=== PATIENT | female | born 1955 | race Caucasian/White ===

== ENCOUNTER 2019-06-05 21:16 | Inpatient (IN) | payer SELFPAY ==
[2019-06-05 22:18] LABS: Bilirubin Negative (Negative); Blood, Urine Negative (Negative); Clarity Turbid (Clear); Glucose, Urine (Dipstick) Normal (Negative); Leukocyte Negative Leu/uL (Negative); Nitrite Negative (Negative); Protein, Urine (Dipstick) 20 mg/dL (Neg-Trace)
--- NOTE | 2019-06-05 22:41 | RAD ---
Exam: Chest one view HISTORY:Lethargy. Agitation. Comparison: None FINDINGS: Cardiac silhouette:Normal cardiac silhouette. Left-sided Mediport catheter with the distal tip in the expected region of the superior vena cava. Pulmonary vessels: Pulmonary vessels are normal. There appears to be postsurgical change in the right infrahilar region. Costophrenic angles: Clear LUNGS: Increased opacity in the right infrahilar region which may represent post surgical change. Ate lectasis, pneumonia or aspiration are not be excluded. Pneumothorax: None Osseous abnormalities: None IMPRESSION: 1. Postoperative changes in the right infrahilar region with increased density as described above. Co rrelate clinically. Continued surveillance is recommended.
[2019-06-05 22:46] LABS: Actual Bicarbonate (HCO3a) 21.7 mEq/L (22-28); CO2 Tension 27.1 mmHg (35.0-45.0); Carboxyhemoglobin (COHb) 1.2 gm% (0.0-3.0); Hemoglobin (Hb) 11.9 g/dL (12.0-16.0); O2 Tension (PaO2) 131.5 mmHg (> 80.0); pH, Arterial 7.52 (7.35-7.45)
[2019-06-05 22:47] LABS: Analyzer IN Cardio ER; Calcium, Ionized 1.17 mmol/L (1.12-1.30); Potassium - ABG Lab 3.92 mmol/L (3.70-5.30); Puncture Site RBA
[2019-06-05 22:48] LABS: ALV-art Gradient 34.265 (0-20)
--- NOTE | 2019-06-05 23:01 | CT ---
Exam: Head CT without contrast HISTORY: Agitation. Metastatic breast cancer. Lethargy. COMPARISON: none FINDINGS: Limited evaluation due to motion degradation. There is vasogenic edema involving the left and right o ccipital-parietal lobes. Additional metastatic focus is suspected in the right temporal lobe. No obvious parenchymal hemorrhage or extra-axial hematoma. No obvious midline shift. Basilar cisterns ap pear to be grossly patent. No evidence of hydrocephalus. There is a lytic lesion due to metastases involving the left calvarium with overlying soft tissue as well as underlying extra-axial enhancement . Additional osseous metastases is not appreciated Asymmetric opacification of the right mastoid air cells. IMPRESSION: 1. Multifocal intracranial metastases suspected. 2. Metastatic focus in the left calvarium. 3. Further evaluation with brain MRI is recommended
[2019-06-05 23:21] LABS: #Lymphocytes 1.9 thou/uL (1.20-3.40); #Monocytes 1.1 thou/uL (0.11-0.59); #Neutrophils 9.3 thou/uL (1.40-6.50); %Basophils 0.2 % (0.0-1.0); %Eosinophils 0.1 % (0.0-10.0); %Lymphocytes 15.3 % (21.0-51.0); %Monocytes 8.8 % (0.0-10.0); %Neutrophils 75.5 % (42.0-75.0); Hemoglobin 11.1 g/dL (12.0-16.0); Mean Corpuscular HGB CONC 32.2 g/dL (32.0-36.0); Mean Corpuscular Hemoglobin 29.6 pg (27.0-31.0); Mean Corpuscular Volume 91.8 fL (78.0-98.0); Mean Platelet Volume 6.4 fL (7.4-10.4); Platelet Count 579 thou/uL (130-400); RBC Distribution Width 15.9 % (11.5-14.5); Red Blood Cell (RBC) Count 3.73 mill/uL (4.20-5.40); White Blood Cell (WBC) Count 12.3 thou/uL (4.8-10.8)
[2019-06-05 23:36] LABS: Amphetamine Not Detected (NotDetected); Barbiturates Screen Not Detected (NotDetected); Benzodiazepine Screen Detected (NotDetected); Cocaine Metabolite Screen Not Detected (NotDetected); Medtox Control Line Valid? VALID (VALID); Medtox Reader # READER 4; Methadone Not Detected (NotDetected); Methamphetamine Not Detected (NotDetected); Opiate Screen Detected (NotDetected); Oxycodone Screen Not Detected (NotDetected); Phencyclidine (PCP) Not Detected (NotDetected); THC/Cannabinoid Screen Not Detected (NotDetected); Tricyclic Screen Not Detected (NotDetected)
[2019-06-05 23:42] LABS: ALT (SGPT) 32 U/L (8-55); AST (SGOT) 68 U/L (5-34); Albumin 2.9 g/dL (3.4-4.8); Alkaline Phosphatase 455 U/L (40-150); Anion Gap 18 mmol/L (10-20); BUN (Urea Nitrogen) 11 mg/dL (9.8-20.1); Bilirubin, Total 0.5 mg/dL (0.2-1.2); CK (CPK) 98 U/L (29-168); Calc. Creatinine Clearance 0 mL/min (70-130); Calcium 9.4 mg/dL (7.8-10.44); Carbon Dioxide 23 mmol/L (23-31); Chloride 96 mmol/L (98-107); Estimated GFR-MDRD 82; Globulin 4.1 g/dL (2.4-3.5); Glucose 137 mg/dL (80-115); Potassium 4.5 mmol/L (3.5-5.1); Sodium 132 mmol/L (136-145)
[2019-06-05] MEDS ORDERED: Cefepime 2 GM VIAL ONE (23:52)
[2019-06-05] MEDS ORDERED: Acetaminophen 650 MG Suppository ONE (23:53)
[2019-06-06] MEDS ORDERED: Vancomycin HCl 1.5 GM in Sodium Chloride 0.9% 250 ML 300 ML IVPB SCH (00:15)
[2019-06-06] MEDS ORDERED: Lorazepam 2 MG/ML VIAL ONE (00:25)
[2019-06-06] MEDS ORDERED: Dexamethasone 10 MG/ML VIAL ONE (00:25)
[2019-06-06] MEDS ORDERED: Morphine 4 MG/ML VIAL ONE (01:04)
[2019-06-06] MEDS ORDERED: Acetaminophen 650 MG Suppository PR PRN (02:20)
[2019-06-06 06:18] LABS: Lactic Acid 3.1 mmol/L (0.5-2.2)
[2019-06-06] MEDS ORDERED: Prevnar 13-Val Conj/PF 0.5 ML SYRINGE IM ONE (07:15)
[2019-06-06] MEDS ORDERED: Cefepime 2 GM in Sodium Chloride 0.9% 100 ML IVPB SCH (08:00)
[2019-06-06] MEDS: Famotidine/PF 20 mg/2ml Vial SLOW IVP SCH ×2 (09:12→09:59)
[2019-06-06] MEDS: Dexamethasone 4 MG in Sodium Chloride 0.9% 50 ML IVPB SCH ×5 (09:12→20:49)
[2019-06-06] MEDS ORDERED: hydrALAZINE 20 MG/ML VIAL SLOW IVP PRN (09:27)
--- NOTE | 2019-06-06 10:38 | HP ---
PRIMARY CARE PHYSICIAN: The patient's primary care is through the [facility] in [place], and she sees a fellow there by the name of Dr. Kacey Webb, and that phone number is [phone]. CHIEF COMPLAINT: Altered mental status. HISTORY OF PRESENT ILLNESS: The history of present illness is taken from the patient's sister, who is at bedside, and she is also the medical power of printing agent, and her name is Jennie. The patient herself is unable to give a history due to lethargy and inability to talk. She says that the patient, Ms. Valenzuela has a history of metastatic breast cancer. It was originally diagnosed in 2012. She says that she is "triple negative". Currently, she is getting her treatment at [facility]. She says that in the course of her treatment she was recently diagnosed about 3 weeks ago with a peptic ulcer and had severe bleeding, and she says that she was very weak and bedridden after that, and basically, she took her sister home with her after she had gotten severely weak. She says she was able to get her up for different at least 2 or 3 times a day. She also had been giving her medications for pain as she has bone metastases, which have been very painful, and she normally gets extended-release morphine 15 mg in the morning and 30 in the evening. She said she briefly increased it up to 30 mg twice a day, but then was concerned that she got a little bit more lethargic. She also notes that she has lost about 30 pounds in the last few months, and during this time, she was also giving her immediate-release morphine as well as lorazepam and cyclobenzaprine. She says that she decreased it back to 15 mg in the morning and 30 in the evening, but she still seemed lethargic, and this got her scared, and she was afraid that she may have accidentally overdosed her sister, and she called the patient's primary care doctor in [place], who did not feel that the medication dosage was too much, and the following day, she still had not woken up, and for this reason, she brought her to the emergency room. In the ER, they did a CT scan of the brain, which showed some findings suspicious for metastatic disease, and also, her lab work was suspicious for possible sepsis with an elevated lactic acid, and white blood cell count was elevated as well. She also has a low-grade fever, and she is being admitted for further treatment. REVIEW OF SYSTEMS: Unobtainable as the patient is unable to talk. She is basically lying in the bed. She appears comfortable. PAST MEDICAL HISTORY: Significant for triple-negative breast cancer, which is metastatic to the lungs as well as the bones. The patient's sister also said she had a malignant pericardial effusion recently as well; however, she is still undergoing treatment. The plan was to go Friday for radiation treatment, this coming Friday. Peptic ulcer disease is also a past medical history. PAST SURGICAL HISTORY: She has had a double mastectomy and ankle surgery. ALLERGIES: PENICILLIN. SOCIAL HISTORY: She is . She has 4 living children. One of her daughters due to breast cancer. She is a former smoker and denies any alcohol use. FAMILY HISTORY: Daughter of breast cancer. CURRENT MEDICATIONS: Include: 1. Tylenol 500 mg p.r.n. 2. Flexeril 10 mg 3 times a day. 3. Lorazepam 0.5 mg q.6. 4. Extended-release morphine 15 mg q.6. 5. MS Contin 30 mg daily. 6. Omeprazole 20 mg twice a day. 7. Zofran 4 mg q.8. 8. Senna 8.6 mg p.r.n. daily. 9. Turmeric 500 mg daily. PHYSICAL EXAMINATION: GENERAL: She is well developed and well nourished. I am unable to assess orientation as she is basically sleeping. VITAL SIGNS: Blood pressure was 127/67, heart rate 104, respiratory rate of 18, temperature was 98.1, O2 saturation is 98% on 2 L. HEENT: Her pupils are equal, round, and reactive. Extraocular muscles are intact. Her sclerae are anicteric. Throat; no erythema, no exudates. NECK: No adenopathy. No bruits. LUNGS: Clear. No wheezing. No rales. CARDIOVASCULAR: She has normal S1 and S2. I did not appreciate an S3 or S4. No murmurs, clicks, or rubs. ABDOMEN: Soft, nontender, and nondistended. Positive for bowel sounds. No rebound or guarding. EXTREMITIES: She does have some mild edema. No calf tenderness. NEUROLOGIC: She is lethargic, very difficult to assess, but she appears to move all extremities, and it is grossly nonfocal. SKIN AND INTEGUMENT: She does have some bruising on the upper extremities, primarily on the left upper arm. LABORATORY RESULTS: White blood cell count is 12.3, hemoglobin 11.1, hematocrit is 34.3, platelet count is 579. Sodium 132, potassium 4.5, chloride is 96, CO2 is 23, BUN of 11, creatinine 0.72, glucose is 137. Lactic acid is 3.1. Alkaline phosphatase is 455. The patient had a CT scan of the brain showing multifocal intracranial metastases, which were suspected and a metastatic focus in the left calvarium and a chest x-ray showing an increased density in the right infrahilar region and this is by my reading. ASSESSMENT: This is a 64-year-old female, who presents with altered mental status. It appears through discussion with the patient's sister that this has been a subacute problem more so than acute. She does remember thinking back that her sister was having trouble doing basic tasks recently such as opening the car door, was forgetting certain things, and says that her oncologist in [place] was thinking that she could possibly have brain metastases, had tried to get an MRI, but she was intolerant to lying still. Therefore, I suspect that this altered mental status is more cancer-related than due to medications. She will be admitted here and treated for a metabolic encephalopathy likely due to cancer. 1. Acute metabolic encephalopathy. This is likely cancer related. Due to the metastatic disease, we will attempt to get an MRI on the patient. If this is not possible, then an alternative would be a CT of the brain with contrast. We will also consult Oncology as this could be a new finding and would affect her overall care and likely will need to be in communication with her doctors in [place]. Neurosurgery will also be consulted and consider IV Decadron. 2. Possible sepsis. She has an elevated lactic acid as well as white blood cell count. Chest x-ray is showing a possible infiltrate. We will treat this as pneumonia. She seems to have had a reaction to the cefepime; therefore, we will go with Levaquin and vancomycin. 3. Peptic ulcer disease. According to the patient's sister, she required blood transfusion and had severe bleeding ulcer; therefore, we will hold off on any anti-inflammatory medications including Toradol and continue her PPI twice daily. 4. Discussed code status with the patient's sister. She says that they really had not discussed it much. At the time that she became the medical power of printing agent, her sister had wanted continued active treatment. For this reason, we will leave her full code. We will also consult Palliative Care to help with goals of treatment. The patient's sister says ideally she would like her to try to get to [place] on Friday to do her radiation treatment. I am not guaranteed that [facility] will accept her, but we will consult Case Management in efforts to see if we can get her transferred there. Job ID: [id number]
--- NOTE | 2019-06-06 11:29 | CON ---
DATE OF CONSULTATION: 06/06/2019 Ms. Valenzuela is a 64-year-old woman, who was admitted last night for altered mental status and lethargy. She is a known breast cancer patient with metastatic disease to multiple bony sites including pelvis, spine, and skull and has been treated already with chemotherapy. CT scan overnight reveals temporal and parietal lobe edema as well as a lytic bone lesion in the parietal skull on the left, which would certainly have enough correlation to likely explain her lethargy. She was started on a single dose of 8 mg of Decadron last night with recommendation to continue at 4 mg t.i.d. given her size and weight. She has also been started on IV Pepcid 20 mg b.i.d. for GI prophylaxis, which would be of clinical importance as she was admitted a month or so ago for GI bleed from ibuprofen overuse. She did not have prior knowledge of the brain metastases, so this appears to represent the 1st scan, where we can identify this. She will need MRI with and without contrast of the brain to better identify where and how many lesions that she has, which will help better direct us on how to proceed. I discussed this with the daughter at bedside. This patient is still lethargic and minimally interactive. She breathes well on her own and vitals are stable. Neurosurgery recommendation again is continuation of Decadron and MRI of the brain. Job ID: [id number]
[2019-06-06] MEDS: Lorazepam 2 MG/ML VIAL SLOW IVP PRN (11:32)
[2019-06-06] MEDS: Morphine 4 MG/ML VIAL SLOW IVP PRN ×2 (11:34→22:22)
--- NOTE | 2019-06-06 13:17 | RAD ---
Fluoroscopy vascular access port injection check: DATE: 06/06/2019 HISTORY: Nonfunctioning vascular access port. TECHNIQUE: Patient came to radiology department with Gay needle access of the left IJ implantable vascular acc ess port. The hub of the Gay needle was swab with alcohol pad. Aspiration was attempted. Iodinated contrast was injected into the Gay needle hub, with little resistance. The Gay needle w as then flushed with 8 mL of heparinized saline. Patient tolerated the procedure well. No convocations. FINDINGS: Unable to aspirate. March 10 injected with little resistance. No contrast extravasation. Contrast exits the tip of the catheter port in the SVC. No collection/tracking of injected contrast around the catheter. IMPRESSION: The left internal jugular implantable vascular access port is easily injectable, but cannot be aspira gm.
[2019-06-06] MEDS: Dextrose 5 % And 0.9 % NaCl 1,000 ML IV SCH (16:21)
[2019-06-06] MEDS: Pantoprazole 40 MG VIAL IVP SCH (20:49)
[2019-06-06] MEDS: Vancomycin HCl 1 GM in Premix Bag 1 BAG IVPB SCH (20:49)
--- NOTE | 2019-06-06 22:47 | CON ---
DATE OF CONSULTATION: 06/06/2019 REASON FOR CONSULTATION: Metastatic malignancy to the brain. HISTORY OF PRESENT ILLNESS: The patient is a 64-year-old woman admitted for altered mental status. She underwent breast conserving therapy in 2013 for a triple negative breast cancer, all treatment being done in the [place] area. Source documents are not available for review. However, it did appear she had triple negative breast cancer and underwent lumpectomy/axillary sampling and radiation as well as postoperative adjuvant chemotherapy. History is being provided by her sister who is quite knowledgeable and who is at the bedside. In early 2018, she was found to have recurrent disease in bone and has been treated intermittently with a number of chemotherapeutic approaches including Gemzar and Xeloda. There may have been additional therapeutic intervention as well. She apparently did well until early this year when she developed evidence of pleural pulmonary disease with a malignant pericardial effusion. She again was treated with chemotherapy, details unavailable. Her last treatment was about 6 weeks ago. Three weeks ago, she was admitted for a GI bleed and has declined functionally since that time. The patient lives in [place] and receives her care within the [facility] in [facility]. Her sister however lives in [place] picked her up and spent several days in the area. In the past 48 hours, she has become unresponsive and was brought to the emergency room for further evaluation. She has been on some sedatives and narcotics, which was initially thought to be the explanation. However, a CT scan of the brain without contrast showed vasogenic edema involving the left and right occipital and parietal lobes with an additional suspected metastatic focus in the right temporal lobe. There was evidence of metastatic disease in the calvarium as well as overlying soft tissue. Of course, no contrast was administered and, therefore, the study was limited. Additional laboratory studies include a CBC that is fairly normal except for slightly elevated white count and platelet count with a hemoglobin of 11.1. Chemistries are normal except for borderline sodium of 132. The blood sugar is 137. AST is slightly elevated at 68 and the alkaline phosphatase is 455. The calcium is normal at 9.4 with an albumin of 2.9. Toxicology and urine did show what appeared to be positive for opiates and benzodiazepines. Today, the patient was sedated in an attempt to perform an MRI, but this was unsuccessful as she could not cooperate with the procedure. At this time, I am asked to provide further recommendations regarding the management of this patient. PAST MEDICAL HISTORY: She had a peptic ulcer in the past, but there is apparently no history of hypertension, diabetes mellitus, or heart disease. PAST SURGICAL HISTORY: She had breast conserving surgery and ankle surgery in the past. ALLERGIES: SHE DESCRIBES PENICILLIN ALLERGY PER THE SISTER, BUT DETAILS UNAVAILABLE. SOCIAL HISTORY: She has 4 living children and she lives with her son in [place]. A daughter also of breast cancer. She is a former smoker and does not use alcohol. CURRENT MEDICATIONS: On admission; 1. Tylenol. 2. Flexeril. 3. Lorazepam. 4. MS Contin. 5. Omeprazole. 6. Zofran. 7. Senna. 8. Turmeric. REVIEW OF SYSTEMS: Unobtainable in this unresponsive patient. PHYSICAL EXAMINATION: VITAL SIGNS: Temperature 99.1, pulse 91 and regular, respirations 16, blood pressure 117/66. GENERAL: The patient is an unresponsive woman, lying on her right side. She is unresponsive to verbal or noxious stimuli. HEENT: Extraocular movements are intact and the pupils are equal, round, reactive to light. NECK: Supple. LUNGS: Clear. CARDIOVASCULAR: Regular rate and rhythm without murmur, rub, gallop, or click. ABDOMEN: No tenderness, organomegaly, masses, bruits, or ascites. EXTREMITIES: No clubbing, cyanosis, edema. SKIN: Normal. LYMPH: No adenopathy. MUSCULOSKELETAL: No active arthritis. NEUROLOGICAL: No focal findings. LABORATORY DATA: See history of present illness. IMAGING STUDIES: See history of present illness. In addition, chest x-ray showed some nonspecific right infrahilar changes/increased opacity without other significant findings. IMPRESSION: Metastatic triple negative breast cancer involving bone, lung, and pericardium, now with altered mental status associated with bilateral brain metastasis. RECOMMENDATIONS: She will continue the dexamethasone for now and hopefully, she will improve and become more responsive. Given her current unresponsive state, I would recommend holding sedatives and narcotics while continuing dexamethasone in hopes of improvement. Optimally, should she improve, I would recommend she return to [place] and to her radiation oncologist in the [facility] system with whom she has an appointment on Friday for spine radiation secondary to painful metastasis. If her mental status does not improve with steroids, I think whole-brain radiation would be futile and technically impractical. Hospice would then be the best approach. Thanks for allowing me to provide more recommendations. We will follow with you. Job ID: [id number]
[2019-06-07 05:10] LABS: Anion Gap 16 mmol/L (10-20); BUN (Urea Nitrogen) 15 mg/dL (9.8-20.1); Calc. Creatinine Clearance 85 mL/min (70-130); Calcium 8.8 mg/dL (7.8-10.44); Carbon Dioxide 19 mmol/L (23-31); Chloride 102 mmol/L (98-107); Estimated GFR-MDRD 82; Glucose 154 mg/dL (80-115); Potassium 3.7 mmol/L (3.5-5.1); Sodium 133 mmol/L (136-145)
[2019-06-07 05:20] LABS: Band 2 % (5-11); Hemoglobin 10.7 g/dL (12.0-16.0); Lymphocytes 16 % (21-51); MDiff Complete? YES; Mean Corpuscular HGB CONC 31.9 g/dL (32.0-36.0); Mean Corpuscular Hemoglobin 29.4 pg (27.0-31.0); Mean Corpuscular Volume 92.1 fL (78.0-98.0); Mean Platelet Volume 6.6 fL (7.4-10.4); Monocytes 7 % (0-10); Neutrophil 75 % (42-75); Platelet Count 492 thou/uL (130-400); Platelet Morphology Comment Appears Increased; RBC Distribution Width 15.7 % (11.5-14.5); Red Blood Cell (RBC) Count 3.65 mill/uL (4.20-5.40); White Blood Cell (WBC) Count 9.9 thou/uL (4.8-10.8)
[2019-06-07] MEDS: Dextrose 5 % And 0.9 % NaCl 1,000 ML IV SCH ×2 (07:06→16:20)
[2019-06-07] MEDS: Enoxaparin Sodium 40 MG/0.4 ML SYRINGE SC SCH (09:02)
[2019-06-07] MEDS: Dexamethasone 4 mg/ml Vial SLOW IVP SCH ×3 (09:02→20:50)
[2019-06-07] MEDS: Pantoprazole 40 MG VIAL IVP SCH ×2 (09:02→20:50)
[2019-06-07] MEDS: Vancomycin HCl 1 GM in Premix Bag 1 BAG IVPB SCH ×2 (09:03→20:50)
[2019-06-07] MEDS: Morphine 4 MG/ML VIAL SLOW IVP PRN (09:49)
[2019-06-07] MEDS: Pharmacy to Dose 1 EACH VANCOMYCIN IVPB SCH (09:50)
--- NOTE | 2019-06-07 11:19 | PDOC.PN ---
- Subjective Encounter Start Date: 06/07/19 Encounter Start Time: 11:18 Ms. Valenzuela was seen today in follow-up of altered mental status and metastatic breast cancer. she is a bit more alert and awake today. She still will not says much. She denies having any pain. - Objective Resuscitation Status - Order Detail: 06/06/19 09:20 Resuscitation Status Routine Resuscitation Status: FULL: Full Resuscitation MAR Reviewed: Yes Vital Signs & Weight: Vital Signs (12 hours) Temp Pulse Resp BP BP Pulse Ox 06/07/19 07:21 97.8 F 72 14 126/78 100 06/07/19 03:34 96.5 F L 79 16 101/55 L 98 06/07/19 00:00 98.5 F 81 20 139/78 98 Weight Weight 146 lb 6 oz I&O: 06/06/19 06/07/19 06/08/19 06:59 06:59 06:59 Intake Total 312 1437.5 Balance 312 1437.5 Result Diagrams: 06/07/19 04:39 06/07/19 04:39 Phys Exam - Physical Examination HEENT: PERRLA Respiratory: no wheezing, no rales, no rhonchi, clear to auscultation bilateral Cardiovascular: RRR, no significant murmur, no rub Gastrointestinal: soft, non-tender, no distention, positive bowel sounds Musculoskeletal: pulses present, edema present + mild trace edema in both lower extremities Dx/Plan (1) Metabolic encephalopathy Code(s): G93.41 - METABOLIC ENCEPHALOPATHY Status: Acute (2) Breast cancer metastasized to bone Code(s): C50.919 - MALIGNANT NEOPLASM OF UNSP SITE OF UNSPECIFIED FEMALE BREAST ; C79.51 - SECONDARY MALIGNANT NEOPLASM OF BONE Status: Acute (3) Sepsis Code(s): A41.9 - SEPSIS, UNSPECIFIED ORGANISM Status: Acute - Plan * Metabolic encephalopathy- likely related to breast cancer with brain metastasis- will try to obtain the MRI under general anesthesia * Continue Decadron * Will reduce her dose of Morphine * Sepsis- continue empiric Levaquin and Vancomycin * Neurosurgery and Oncology input appreciated * Further recommendations will depend on the findings from the MRI of the brain.
[2019-06-07] MEDS ORDERED: Ondansetron PF 4 MG/2 ML Vial ONE (11:20)
[2019-06-07] MEDS ORDERED: PROPOFOL 200 MG/20 ML VIAL ONE (11:20)
[2019-06-07] MEDS ORDERED: Lidocaine 1% PF 5 ML VIAL ONE (11:20)
[2019-06-07] MEDS ORDERED: Gadobenate Dimeglumine 529 MG/1 ML (20ML VIAL) ONE (12:13)
[2019-06-07] MEDS ORDERED: Midazolam HCl 2 mg/2 ml Vial ONE (14:05)
[2019-06-07] MEDS ORDERED: Promethazine HCl 25 MG/ML VIAL ONE (14:05)
[2019-06-07] MEDS ORDERED: Famotidine/PF 20 mg/2ml Vial ONE (14:05)
[2019-06-07] MEDS ORDERED: Sodium Chloride 0.9% 10 ML ONE (15:15)
--- NOTE | 2019-06-07 15:39 | MRI ---
MRI OF BRAIN WITH AND WITHOUT CONTRAST: INDICATION: Brain lab protocol. COMPARISON: Reference is made to head CT 2 days prior. FINDINGS: There is diffuse abnormal pachymeningeal nodular thickening and enhancement with associated invasion of the left temporoparietal calvarium with tumoral extension into the subgaleal scalp as well as chencho ersing the calvarium of this region with a focal osseous defect. There is extension of the dural-bas ed tumor into the underlying left cerebral parenchyma with multiple nodular masses as well as cystic masses of the adjacent mid to posterior left temporal lobe. No significant shift of midline. No simba triculomegaly. No evidence of acute territorial infarction. There is vasogenic edema of the posteri or cerebral hemispheres bilaterally. There is abnormal thickening of the pituitary infundibulum as w ell as heterogeneous enhancement and nodularity of the posterior aspect of the sella which does appea r separate from an attenuated pituitary gland situated at the floor of the sella. No intracranial he morrhage susceptibility is present. 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 Tumoral growth along the pituitary infundibulum is also present, with extension of tumoral nod ularity into the suprasellar cistern. POS: C
--- NOTE | 2019-06-07 17:20 | PDOC.EVN ---
Event Note - Event Note Event Note: I discussed with MRI results with the patient's sister, X- and son who were at the bedside. They are now aware of the extensive nature of the brain metastasis. They would like to hold off on transfer to [facility] at this time, given the new information. All options of care were discussed including Hospice. They are aware of her poor prognosis, but say that the patient had expressed a wish for a trial of radiation if possible. She has been more alert today, and was answering questions and talking with her family, and the nurse caring for her. Will consult Dr. Arriaza with Radiation Oncology, and see if she will be a candidate for therapy. Will continue Decadron. Can likely de-escalate antibiotics soon. ACP 30 minutes
[2019-06-07] MEDS: Lorazepam 2 MG/ML VIAL SLOW IVP PRN (20:49)
[2019-06-07 21:02] LABS: Vancomycin, Trough 19.4 ug/mL
[2019-06-08] MEDS: Dextrose 5 % And 0.9 % NaCl 1,000 ML IV SCH ×2 (05:52→23:10)
[2019-06-08] MEDS: Dexamethasone 4 mg/ml Vial SLOW IVP SCH ×3 (09:14→21:12)
[2019-06-08] MEDS: Morphine 4 MG/ML VIAL SLOW IVP PRN ×3 (09:15→23:11)
[2019-06-08] MEDS: Enoxaparin Sodium 40 MG/0.4 ML SYRINGE SC SCH (09:15)
[2019-06-08] MEDS: Pantoprazole 40 MG VIAL IVP SCH ×2 (09:17→21:12)
[2019-06-08] MEDS: Bisacodyl 10 MG SUPP PR PRN (09:17)
[2019-06-08] MEDS: Vancomycin HCl 1 GM in Premix Bag 1 BAG IVPB SCH (09:17)
--- NOTE | 2019-06-08 10:22 | PDOC.PN ---
- Subjective Encounter Start Date: 06/08/19 Encounter Start Time: 10:20 Subjective: Admitted due to mental status change. -: Found to have brain mets with edema. -: Mental status is improvedb with steroid. Desires to eat more food. - Objective Resuscitation Status - Order Detail: 06/06/19 09:20 Resuscitation Status Routine Resuscitation Status: FULL: Full Resuscitation Vital Signs & Weight: Vital Signs (12 hours) Temp Pulse Resp BP BP Pulse Ox 06/08/19 08:00 97.5 F L 64 16 131/74 98 06/08/19 03:39 96.4 F L 87 17 122/72 100 06/07/19 23:45 66 106/57 L Weight Admit Weight 146 lb 6 oz Weight 146 lb 6 oz I&O: 06/07/19 06/08/19 06/09/19 06:59 06:59 06:59 Intake Total 1437.5 2350 Balance 1437.5 2350 Result Diagrams: 06/07/19 04:39 06/07/19 04:39 Phys Exam - Physical Examination Constitutional: NAD fatigued HEENT: PERRLA, moist MMs Neck: no JVD, supple Respiratory: no rales, no rhonchi fair air entry with transmitted sound. Cardiovascular: RRR Gastrointestinal: soft, non-tender, no distention, positive bowel sounds Musculoskeletal: no edema, pulses present Neurological: non-focal, moves all 4 limbs Psychiatric: normal affect, A&O x 3 Dx/Plan (1) Breast cancer metastasized to brain Code(s): C50.919 - MALIGNANT NEOPLASM OF UNSP SITE OF UNSPECIFIED FEMALE BREAST ; C79.31 - SECONDARY MALIGNANT NEOPLASM OF BRAIN Status: Acute (2) Physical deconditioning Code(s): R53.81 - OTHER MALAISE Status: Acute (3) Chronic back pain Code(s): M54.9 - DORSALGIA, UNSPECIFIED; G89.29 - OTHER CHRONIC PAIN Status: Acute (4) Breast cancer metastasized to bone Code(s): C50.919 - MALIGNANT NEOPLASM OF UNSP SITE OF UNSPECIFIED FEMALE BREAST ; C79.51 - SECONDARY MALIGNANT NEOPLASM OF BONE Status: Acute (5) Metabolic encephalopathy Code(s): G93.41 - METABOLIC ENCEPHALOPATHY Status: Acute (6) SIRS (systemic inflammatory response syndrome) Code(s): R65.10 - SIRS OF NON-INFECTIOUS ORIGIN W/O ACUTE ORGAN DYSFUNCTION Status: Acute (7) Pulmonary infiltrate on chest x-ray Code(s): R91.8 - OTHER NONSPECIFIC ABNORMAL FINDING OF LUNG FIELD Status: Acute - Plan DC IV vancomycin. Continue IV levaquin -: Awaiting Radiation oncology evaluation. -: Advance diet as tolerated. -: Consult PT. Continue supportive care. * .
[2019-06-08] MEDS: Pharmacy to Dose 1 EACH VANCOMYCIN IVPB SCH (10:50)
[2019-06-08 11:08] LABS: Anion Gap 13 mmol/L (10-20); BUN (Urea Nitrogen) 17 mg/dL (9.8-20.1); Calc. Creatinine Clearance 87 mL/min (70-130); Calcium 8.9 mg/dL (7.8-10.44); Carbon Dioxide 21 mmol/L (23-31); Chloride 106 mmol/L (98-107); Estimated GFR-MDRD 85; Glucose 145 mg/dL (80-115); Potassium 3.4 mmol/L (3.5-5.1); Sodium 137 mmol/L (136-145)
[2019-06-09] MEDS: Ondansetron PF 4 MG/2 ML Vial SLOW IVP PRN (04:48)
[2019-06-09] MEDS: Morphine 4 MG/ML VIAL SLOW IVP PRN ×4 (04:55→18:24)
[2019-06-09] MEDS: Acetaminophen 325 MG TAB PO PRN ×2 (08:11→13:51)
[2019-06-09] MEDS: Dextrose 5 % And 0.9 % NaCl 1,000 ML IV SCH (08:12)
[2019-06-09] MEDS: Dexamethasone 4 mg/ml Vial SLOW IVP SCH ×3 (08:12→20:32)
[2019-06-09] MEDS: Enoxaparin Sodium 40 MG/0.4 ML SYRINGE SC SCH (08:12)
[2019-06-09] MEDS: Pantoprazole 40 MG VIAL IVP SCH ×2 (08:13→20:33)
--- NOTE | 2019-06-09 10:31 | PDOC.PN ---
- Subjective Encounter Start Date: 06/09/19 Encounter Start Time: 10:30 Subjective: Feeling better and getting stronger. No fever - Objective Resuscitation Status - Order Detail: 06/06/19 09:20 Resuscitation Status Routine Resuscitation Status: FULL: Full Resuscitation Vital Signs & Weight: Vital Signs (12 hours) Temp Pulse Resp BP Pulse Ox 06/09/19 04:00 97.7 F 67 18 125/68 99 Weight Admit Weight 146 lb 6 oz Weight 146 lb I&O: 06/08/19 06/09/19 06/10/19 06:59 06:59 06:59 Intake Total 2350 2640 Output Total 600 Balance 2350 2040 Result Diagrams: 06/07/19 04:39 06/08/19 10:29 Phys Exam - Physical Examination Constitutional: NAD HEENT: PERRLA, moist MMs Neck: no JVD, supple Respiratory: no wheezing, no rales, no rhonchi, clear to auscultation bilateral Cardiovascular: RRR, no significant murmur Gastrointestinal: soft, non-tender, no distention, positive bowel sounds Musculoskeletal: no edema, pulses present Neurological: non-focal, moves all 4 limbs awake and conversational. some memory lapses noted. oriented x 3 Dx/Plan (1) Breast cancer metastasized to brain Code(s): C50.919 - MALIGNANT NEOPLASM OF UNSP SITE OF UNSPECIFIED FEMALE BREAST ; C79.31 - SECONDARY MALIGNANT NEOPLASM OF BRAIN Status: Acute (2) Physical deconditioning Code(s): R53.81 - OTHER MALAISE Status: Acute (3) Chronic back pain Code(s): M54.9 - DORSALGIA, UNSPECIFIED; G89.29 - OTHER CHRONIC PAIN Status: Acute (4) Breast cancer metastasized to bone Code(s): C50.919 - MALIGNANT NEOPLASM OF UNSP SITE OF UNSPECIFIED FEMALE BREAST ; C79.51 - SECONDARY MALIGNANT NEOPLASM OF BONE Status: Acute (5) Metabolic encephalopathy Code(s): G93.41 - METABOLIC ENCEPHALOPATHY Status: Acute (6) SIRS (systemic inflammatory response syndrome) Code(s): R65.10 - SIRS OF NON-INFECTIOUS ORIGIN W/O ACUTE ORGAN DYSFUNCTION Status: Acute (7) Pulmonary infiltrate on chest x-ray Code(s): R91.8 - OTHER NONSPECIFIC ABNORMAL FINDING OF LUNG FIELD Status: Acute (8) Hypokalemia Code(s): E87.6 - HYPOKALEMIA Status: Acute - Plan DC IV fluid and IV antibiotics. -: Holcomb oral intake advised -: Start oral supplementation. -: Consult OT/PT. -: increase activity. replete serum potassium. Follow CBC and BMP * .
[2019-06-09] MEDS ORDERED: Potassium Chloride 20 MEQ TAB PO SCH (10:45)
[2019-06-09 12:36] VITALS: BMI 22.8
[2019-06-10] MEDS: Morphine 4 MG/ML VIAL SLOW IVP PRN ×6 (00:46→19:54)
[2019-06-10 03:59] LABS: #Lymphocytes 1.5 thou/uL (1.20-3.40); #Monocytes 0.6 thou/uL (0.11-0.59); #Neutrophils 9.2 thou/uL (1.40-6.50); %Basophils 0.2 % (0.0-1.0); %Eosinophils 0.2 % (0.0-10.0); %Lymphocytes 13.3 % (21.0-51.0); %Monocytes 4.9 % (0.0-10.0); %Neutrophils 81.4 % (42.0-75.0); Mean Corpuscular HGB CONC 31.2 g/dL (32.0-36.0); Mean Corpuscular Hemoglobin 28.7 pg (27.0-31.0); Mean Corpuscular Volume 92.1 fL (78.0-98.0); Mean Platelet Volume 6.8 fL (7.4-10.4); Platelet Count 588 thou/uL (130-400); RBC Distribution Width 15.5 % (11.5-14.5); Red Blood Cell (RBC) Count 3.49 mill/uL (4.20-5.40); White Blood Cell (WBC) Count 11.3 thou/uL (4.8-10.8)
[2019-06-10 04:17] LABS: Anion Gap 14 mmol/L (10-20); BUN (Urea Nitrogen) 14 mg/dL (9.8-20.1); Calc. Creatinine Clearance 91 mL/min (70-130); Calcium 8.9 mg/dL (7.8-10.44); Carbon Dioxide 24 mmol/L (23-31); Chloride 102 mmol/L (98-107); Estimated GFR-MDRD 89; Glucose 138 mg/dL (80-115); Potassium 3.9 mmol/L (3.5-5.1); Sodium 136 mmol/L (136-145)
[2019-06-10] MEDS: Dexamethasone 4 mg/ml Vial SLOW IVP SCH ×3 (08:24→19:53)
[2019-06-10] MEDS: Pantoprazole 40 MG VIAL IVP SCH ×2 (08:25→19:53)
[2019-06-10] MEDS: Enoxaparin Sodium 40 MG/0.4 ML SYRINGE SC SCH (08:32)
[2019-06-10] MEDS: Ondansetron PF 4 MG/2 ML Vial SLOW IVP PRN ×2 (12:16→16:18)
[2019-06-10] MEDS: Lorazepam 2 MG/ML VIAL SLOW IVP PRN ×2 (12:18→16:17)
--- NOTE | 2019-06-10 13:57 | PDOC.PN ---
- Subjective Encounter Start Date: 06/10/19 Encounter Start Time: 13:56 Subjective: No new problem -: Staill having back pain. - Objective Resuscitation Status - Order Detail: 06/06/19 09:20 Resuscitation Status Routine Resuscitation Status: FULL: Full Resuscitation Vital Signs & Weight: Vital Signs (12 hours) Temp Pulse Resp BP Pulse Ox 06/10/19 08:20 97.7 F 66 18 155/79 H 99 06/10/19 08:00 99 06/10/19 07:32 100 06/10/19 04:00 98.0 F 77 16 130/76 100 Weight Admit Weight 146 lb 6 oz Weight 146 lb I&O: 06/09/19 06/10/19 06/11/19 06:59 06:59 06:59 Intake Total 2640 1440 Output Total 600 Balance 2040 1440 Result Diagrams: 06/10/19 03:38 06/10/19 03:38 Phys Exam - Physical Examination Constitutional: NAD fatigued HEENT: PERRLA, moist MMs Neck: no JVD, supple Respiratory: no wheezing, no rales, no rhonchi, clear to auscultation bilateral Cardiovascular: RRR Gastrointestinal: soft, non-tender, no distention, positive bowel sounds Musculoskeletal: no edema, pulses present Neurological: non-focal, moves all 4 limbs awake and conversational. oriented to person and place at least. Memory lapses noted Dx/Plan (1) Breast cancer metastasized to brain Code(s): C50.919 - MALIGNANT NEOPLASM OF UNSP SITE OF UNSPECIFIED FEMALE BREAST ; C79.31 - SECONDARY MALIGNANT NEOPLASM OF BRAIN Status: Acute (2) Physical deconditioning Code(s): R53.81 - OTHER MALAISE Status: Acute (3) Chronic back pain Code(s): M54.9 - DORSALGIA, UNSPECIFIED; G89.29 - OTHER CHRONIC PAIN Status: Acute (4) Breast cancer metastasized to bone Code(s): C50.919 - MALIGNANT NEOPLASM OF UNSP SITE OF UNSPECIFIED FEMALE BREAST ; C79.51 - SECONDARY MALIGNANT NEOPLASM OF BONE Status: Acute (5) Metabolic encephalopathy Code(s): G93.41 - METABOLIC ENCEPHALOPATHY Status: Acute (6) SIRS (systemic inflammatory response syndrome) Code(s): R65.10 - SIRS OF NON-INFECTIOUS ORIGIN W/O ACUTE ORGAN DYSFUNCTION Status: Acute (7) Pulmonary infiltrate on chest x-ray Code(s): R91.8 - OTHER NONSPECIFIC ABNORMAL FINDING OF LUNG FIELD Status: Acute (8) Hypokalemia Code(s): E87.6 - HYPOKALEMIA Status: Acute - Plan Continue current treatments. -: for discharge home today. -: need to follow up with pain doctor roxanne roman and oncologist on 06/14 -: Care plan discussed with patient's daughter and sister. * .
--- NOTE | 2019-06-10 14:33 | DIS ---
DATE OF ADMISSION: 06/06/2019 DATE OF DISCHARGE: 06/10/2019 PRIMARY CARE PHYSICIAN: Out of town primary care provider. DISCHARGE DIAGNOSES: 1. Acute metabolic encephalopathy due to metastatic disease. 2. Metastatic brain tumor. 3. Primary breast cancer with distant metastasis. 4. Chronic back pain. 5. Physical deconditioning. 6. Pulmonary infiltrate on chest x-ray. 7. Systemic inflammatory response syndrome. 8. Hypokalemia. 9. Brain tumor with vasogenic edema. CONSULTS: 1. Neurosurgery. 2. Hematology and Oncology. HOSPITAL COURSE: The patient is a 64-year-old female with known history of metastatic breast cancer with metastasis to the bone and spine associated with chronic pain, who was brought in to the hospital due to decreased responsiveness and generalized weakness. The patient was lethargic on presentation and was thought may be related to psychotropic medication as the patient was on morphine, lorazepam, and cyclobenzaprine. The patient also was found to have pulmonary infiltrates on chest x-ray suggestive of pneumonia coupled with the fact that she had elevated lactic acid, white count, and low-grade fever on presentation, hence was started on broad-spectrum antibiotics for possible pneumonia. The patient also was evaluated with CT scan of the brain, which showed findings suspicious for metastatic disease, which we later confirmed with MRI of the brain, which showed metastatic brain cancer with vasogenic edema. Neurosurgery consult was obtained and dexamethasone treatment was instituted with prompt improvement in mental status. Hematology-Oncology consult was obtained and he recommended that either the patient follows up with regular oncologist in [facility] with improvement in mental status or to proceed with hospice if condition worsen. In treatment with steroids, mental status improved and the patient was conversational. Following further discussion with relatives about the MRI that we have reviewed that getting radiation therapy to the brain will be of help and requested consult to radiation oncologist here. However, locally, radiation oncologist was on vacation and partner covering recommended that the patient be transferred over to regular oncologist for continuation of care. The patient remained stable and was subsequently discharged home to follow up with the Pain Management doctor and regular oncologist at [facility]. PHYSICAL EXAMINATION: VITAL SIGNS: Temperature 97.7, pulse 66, respiratory rate 18, SpO2 of 99% on room air, blood pressure 155/79. GENERAL: Fatigued female, in no obvious distress. Afebrile. Anicteric. Acyanotic. HEENT: Normocephalic, atraumatic. Oral mucosa is moist. CARDIOVASCULAR: Regular rhythm and rate with normal heart sounds 1 and 2. RESPIRATORY: Fair air entry bilaterally with no obvious crackle or rhonchi or use of accessory muscles. GI: Full, soft, nontender, nondistended with normal bowel sounds. EXTREMITIES: Grossly normal looking, atraumatic with no edema, erythema, or cyanosis. NEUROLOGIC: Conscious and alert. Oriented at least to person and place. Cranial nerves 2 through 12 are grossly intact. Some memory lapses were noted. The patient moves all extremities. DISCHARGE DISPOSITION: Home. DISCHARGE CONDITION: Stable. DISCHARGE MEDICATIONS: 1. Dexamethasone 4 mg p.o. b.i.d. 2. Morphine ER, MS Contin 15 mg p.o. q.6 p.r.n. 3. MS Contin 30 mg p.o. daily at bedtime. 4. Zofran ODT 4 mg q.8 p.r.n. 5. Acetaminophen 500 p.o. p.r.n. 6. Flexeril 10 mg t.i.d. p.r.n. 7. Docusate sodium 50 mg p.o. daily. 8. Lactobacillus 1 capsule p.o. daily. 9. Lorazepam 0.5 mg q.6 p.r.n. 10. Omeprazole 20 mg p.o. b.i.d. 11. Senna 8.6 mg p.o. daily. 12. Turmeric 500 mg p.o. daily. TIME SPENT: This discharge took more than 35 minutes. Job ID: [id number]
--- NOTE | 2019-06-10 17:24 | PDOC.PALCO ---
Palliative Care Consult - Consult Details Requesting Physician: Dr Persaud Reason for Consult: goals of care, symptom management, assistance with communication prognosis/disease Family Members Present: Sister Jennie - Pertinent HPI Presented to emergency room with recent onset of altered mental status, increase in lethargy - Pertinent PMH Breast cancer with bone metastasis. Daughter from same cancer two years ago. - Social History Drug Use History: none Living Situation: with partner - Medications MAR Reviewed: Yes - Allergies Allergies/Adverse Reactions: Allergies Allergy/AdvReac Type Severity Reaction Status Date / Time Penicillins Allergy Verified 06/06/19 00:07 - Objective Vital Signs: Vital Signs - Most Recent Temp Pulse Resp BP Pulse Ox 97.7 F 66 18 155/79 H 99 06/10/19 08:20 06/10/19 08:20 06/10/19 08:20 06/10/19 08:20 06/10/19 08:20 Palliative Performance Scale: 30 - Physical Exam Constitutional: confusion HEENT: moist MMs, EOMI Respiratory: unlabored breathing Cardiovascular: RRR Gastrointestinal: soft, non-tender Musculoskeletal: edema present Deviation from normal: affect mildly falt Deviation from normal: pallor - Problem List (1) Palliative care encounter Code(s): Z51.5 - ENCOUNTER FOR PALLIATIVE CARE Current Visit: Yes Status: Acute - Plan/Recommendations Plan: Visited with family at length. Patient recent radiology results indicate metastasis to the brain. Patient unaware. Patient daughter and son to arrive this afternoon and sister Jennie is requesting a family meeting to discuss disease progression. Dr Oneill notified. *Discuss metastasis with patient *Discuss disease progression with family and identify goals. [90] minutes spent on this encounter with >50% of the time in counseling and coordination of care. Thank you for this very appropriate consult.
--- NOTE | 2019-06-10 17:41 | PDOC.PALFU ---
Palliative Care Follow-up Note Met iwt patient and family (Daughter, son, and sister Jennie and spoke with Arlyn another sister of patient via phone) Discussed recent findings of metastasis to brain and continued progression of metastasis of cancer. Patient to follow up with MD lei Friday for a consult they had previously arranged prior to recent findings. We will continue to follow and support patient.
--- NOTE | 2019-06-10 17:46 | PDOC.PALFU ---
Palliative Care Follow-up Note Requested to see patient secondary to improved pain management. Discussed fentanyl with family but this is not an option as patient going home and will be difficult to manage as medication is transitioned from oral route to the patch, also the home environment will have caregivers for the patient who are not present today. Patient sleeping during most of visit with family, patient did express pain, however was not able to "pinpoint". Patient has been discharged, communicated with Dr Oneill families wishes.
[2019-06-11] MEDS: Morphine 4 MG/ML VIAL SLOW IVP PRN ×3 (00:06→08:46)
[2019-06-11] MEDS: Cyclobenzaprine 10 MG TAB PO PRN ×2 (01:31→10:26)
[2019-06-11] MEDS: Lorazepam 2 MG/ML VIAL SLOW IVP PRN (01:32)
--- NOTE | 2019-06-11 04:18 | PDOC.EVN ---
Event Note - Event Note Event Note: Case was discussed with nursing. Concerns of Palliative Care Team and family were noted. Will hold on discharge until these concerns can be addressed further. Primary concerns are around pain management and home care.
[2019-06-11] MEDS: Dexamethasone 4 mg/ml Vial SLOW IVP SCH (08:47)
[2019-06-11] MEDS: Pantoprazole 40 MG VIAL IVP SCH (08:48)
[2019-06-11] MEDS: Enoxaparin Sodium 40 MG/0.4 ML SYRINGE SC SCH (08:48)
[2019-06-11] MEDS: Ondansetron PF 4 MG/2 ML Vial SLOW IVP PRN (08:52)
[2019-06-11] MEDS: Bisacodyl 10 MG SUPP PR PRN (08:52)
[2019-06-11] MEDS ORDERED: Senokot 8.6 MG TAB PO PRN ×2 (12:18→12:39)
[2019-06-11] MEDS ORDERED: Morphine ER 15 MG TAB PO PRN (12:18)
[2019-06-11] MEDS: Morphine IR Tab 15 MG TAB PO PRN (13:51)
--- NOTE | 2019-06-11 16:18 | PRG ---
DATE OF SERVICE: 06/11/2019 SUBJECTIVE: The patient is seen and examined at the bedside. There are 2 family members present in the room during my visit. Yesterday, her discharge was postponed because her pain was not well controlled. OBJECTIVE: VITAL SIGNS: Blood pressure is 97/56, pulse is 87, respiratory rate is 16, O2 saturation is 96% on room air. Her temperature is 97.5. GENERAL: She looks very tired and she is in some pain during my visit. She looks sick. HEENT: Her oral mucosa is somewhat dry. NECK: Supple. LUNGS: Clear. HEART: S1 and S2 normal. No S3. No S4. ABDOMEN: Soft and nontender. EXTREMITIES: No clubbing, cyanosis, or edema. NEUROLOGIC: She is very slow to response, but she is aware of the surroundings. She is moving her 4 extremities. LABORATORY DATA: None today. IMPRESSION: 1. Breast cancer metastasized to brain. 2. Physical deconditioning. 3. Chronic back pain. 4. Metabolic encephalopathy. 5. Systemic inflammatory response syndrome. 6. Hypokalemia, resolved. PLAN: To transition her to oral medications. Her morphine and Decadron, she was taking at home. Add fentanyl patch 25 mcg and use p.r.n. IV morphine as needed. She might be able to be discharged in the next 24 to 48 hours when she has controlled with this regimen. Job ID: [id number]
[2019-06-11] MEDS ORDERED: Dexamethasone 1 MG TAB PO SCH (17:00)
[2019-06-11] MEDS: Dexamethasone 4 MG TAB PO SCH (17:57)
[2019-06-11] MEDS: Acetaminophen 325 MG TAB PO PRN (17:57)
[2019-06-11] MEDS: Morphine ER 30 MG TAB PO SCH (19:42)
[2019-06-12] MEDS: Morphine IR Tab 15 MG TAB PO PRN ×2 (08:23→16:38)
[2019-06-12] MEDS: Dexamethasone 4 MG TAB PO SCH ×2 (08:23→16:39)
[2019-06-12] MEDS: Enoxaparin Sodium 40 MG/0.4 ML SYRINGE SC SCH (08:24)
[2019-06-12] MEDS: Lactinex Tablet PO SCH (08:25)
[2019-06-12] MEDS ORDERED: Non-Formulary Item 1 EACH (Lactobacillus Acidophilus [Probiotic] 1 CAPSULE) PO SCH (09:00)
[2019-06-12] MEDS ORDERED: DOCUSATE SODIUM 50 MG PO SCH (09:00)
[2019-06-12] MEDS: Acetaminophen 325 MG TAB PO PRN (10:39)
--- NOTE | 2019-06-12 15:17 | PRG ---
DATE OF SERVICE: 06/12/2019 SUBJECTIVE: The patient is seen and examined at bedside. She seems to be more comfortable today and yesterday, she received a fentanyl patch 25 mcg. The family wants to postpone the discharge since this is a new addition to her home regimen and it is too early to know whether this is going to help her and she is going to see oncologist on Friday in [place]. OBJECTIVE: VITAL SIGNS: Blood pressure is 119/71, pulse is 81, temperature is 98.2, respirations 18, and O2 saturation 98% on room air. SKIN: Pale. HEENT: Pupils are responding to light properly. Conjunctivae are palish. Oral mucosa is moist. NECK: Supple. LUNGS: Clear. HEART: S1 and S2 normal. ABDOMEN: Soft and nontender. EXTREMITIES: No clubbing, cyanosis, or edema. NEUROLOGIC: She is alert and oriented. She moves all 4 extremities. LABORATORY DATA: None today. IMPRESSION: 1. Breast cancer metastasized to the brain. 2. Physical deconditioning. 3. Chronic back pain. 4. Metabolic encephalopathy, improved. 5. Systemic inflammatory response syndrome. 6. Hypokalemia. PLAN: The patient was switched to her regular home regimen with Decadron p.o. and morphine p.o. She also received additional fentanyl patch 25 mcg, and she had some additional coverage with IV morphine. She has an appointment with new oncologist in [place]. The patient's family was told that the patient can be discharged home on this regimen, but they were worried that this might be too early and she will be in pain since she was just started on this new patch and it is not really clear whether this is going to control her pain at home. They are asking for additional day to be observed to make sure that the patch along with her morphine and Decadron is working, so we are going to postpone the discharge until tomorrow and if she needs some IV morphine, she can have it done while in the hospital. Job ID: [id number]
[2019-06-12] MEDS: Docusate Sodium 100 MG/10 ML UDCUP PO SCH (19:00)
[2019-06-12] MEDS: Morphine ER 30 MG TAB PO SCH (21:22)
[2019-06-13] MEDS: Morphine IR Tab 15 MG TAB PO PRN ×2 (05:31→11:31)
[2019-06-13] MEDS: Lactinex Tablet PO SCH (08:57)
[2019-06-13] MEDS: Acetaminophen 325 MG TAB PO PRN ×2 (08:57→15:04)
[2019-06-13] MEDS: Dexamethasone 4 MG TAB PO SCH (08:57)
[2019-06-13] MEDS: Enoxaparin Sodium 40 MG/0.4 ML SYRINGE SC SCH (08:58)
[2019-06-13] MEDS: Docusate Sodium 100 MG/10 ML UDCUP PO SCH (09:31)
[2019-06-13 09:42] VITALS: BP 154/86; TEMP 98.3
--- NOTE | 2019-06-14 10:33 | DIS ---
DATE OF ADMISSION: 06/06/2019 DATE OF DISCHARGE: 06/13/2019 ADDENDUM: Please refer to the discharge, which was done by Dr. Oneill on June 10. The discharge was postponed because the patient's pain was not under control. She was treated with fentanyl patch, when she was switched to her regular pain management regimen at home with Decadron and the morphine controls the pain adequately. We will follow with new oncologists at [facility] on Friday. I am going to give her prescription for 10 patches 25 mcg each and she will continue her regimen as dictated by Dr. Oneill in his discharge summary. Job ID: [id number]
--- NOTE | 2019-06-15 06:39 | PQF ---
[employer] NASIM Eastman KERA HENLEY MD [id number] [id number] CLINICAL DOCUMENTATION CLARIFICATION FORM: POST DISCHARGE Addendum to original discharge summary date: ____ Late entry note date: __ DATE: 06/15/2019 ATTN: KERA HENLEY MD Please exercise your independent, professional judgment in responding to the clarification form. Clinical indicators are provided on the bottom of this form for your review Please check appropriate box(s) to clarify if the following diagnosis has been ruled in or ruled out: SEPSIS [ ] Ruled in diagnosis [ ] Continue to treat [ ] Resolved [ ] Ruled out diagnosis [ ] Cannot rule out diagnosis [ ] Other diagnosis [ ] Unable to determine For continuity of documentation, please document condition throughout progress notes and discharge summary. Thank You. CLINICAL INDICATORS - SIGNS / SYMPTOMS / LABS Possible sepsis-she has an elevated lactic acid as well as WBC-H&P, 06/06- Claude Persaud MD Acute metabolic encephalopathy,this is cancer related-H&P, 06/06- Claude Persaud MD WBC:12.3H-H&P, 06/06, Claude Persaud MD Temp: 98.1, pulse: 104, RR:18-H&P, 06/06, Claude Persaud MD Sepsis- cont empric levaquin and vancomycin-Hospital PN, 06/07, Claude Persaud MD SIRS, Pulmonary infiltrate on chest X-ray-DS, 06/10, Nino Baer MD started broad-sepctrum abx for possible PNA--DS, 06/10, Nino Baer MD RISK FACTORS Breast cancer metastasized to the brain-Prog.note, 06/12, KERA HENLEY MD Metabolic encephalopathy-Prog.note, 06/12, KERA HENLEY MD TREATMENTS Cefepime.IV, Vancomycin.IV-JAN, 06/06 Levoquin.IV-MAR, 06/10 [employer](This form is maintained as a part of the permanent medical record) 2014 [employer]. All Rights Reserved [employer] [not provided] [not provided] MTDD
== END 2019-06-13 15:37 | disposition home or self-care (01) | DRG 54 ==
LOC: ERS 21:16 → 2NO 06-06 00:11 → ONC 06-08 20:41 → 2NO 06-08 20:51 → ONC 06-09 20:54
PROVIDERS: ADMIT Internal Medicine; ATTEND Internal Medicine
PROC: B5181ZA Fluoroscopy of Superior Vena Cava using Low Osmolar Contrast, Guidance (ICD-10-PCS; principal; 2019-06-06)
DX: C79.31 Secondary malignant neoplasm of brain (principal); G93.41 Metabolic encephalopathy; G93.6 Cerebral edema; C79.51 Secondary malignant neoplasm of bone; C78.00 Secondary malignant neoplasm of unspecified lung; C79.89 Secondary malignant neoplasm of other specified sites; R65.10 Systemic inflammatory response syndrome (SIRS) of non-infectious origin without acute organ dysfunction; Z51.5 Encounter for palliative care; E87.6 Hypokalemia; K27.9 Peptic ulcer, site unspecified, unspecified as acute or chronic, without hemorrhage or perforation; G89.29 Other chronic pain; Z88.0 Allergy status to penicillin
CPT/HCPCS: 36415; 36598; 51701; 70450; 70553; 71045; 80048; 80053; 80202; 80306; 81003; 82140; 82274; 82550; 82805; 83605; 84484; 85025; 87040; 87086; 93005; 94760; 96361; 96365; 96367; 96375; A4353; A9577; C9113; J0360; J0692; J1100; J1642; J1650; J1956; J2001; J2060; J2250; J2270; J2405; J2550; J2704; J3370; J3490; J7042; J7050; J8540; S0028